=== PATIENT | female | born 1990 ===

== ENCOUNTER 2016-09-17 21:16 | Emergency (ER) | payer BC ==
[2016-09-17 21:25] VITALS: BP 159/79; PULSE 78; RESP 18; TEMP 97.9; O2SAT 100
[2016-09-17 22:31] LABS: BASO # 0.1 K/uL (0.0-0.2); BASO % 0.8 % (0.0-2.0); EOS # 0.1 K/uL (0.0-0.7); EOS % 1.7 % (0.0-4.0); HEMATOCRIT 38.4 % (34.0-47.0); LYMPH % 26.8 % (20.0-40.0); MEAN CELL VOLUME 82.7 fl (81.0-99.0); MEAN CORPUSCULAR HEMOGLOBIN 27.3 pg (27.0-31.0); MEAN PLATELET VOLUME 9.4 fl (7.2-11.7); MONO # 0.5 K/uL (0.0-0.8); MONO % 6.8 % (0.0-10.0); NEUT # 4.7 K/uL (1.8-7.0); NEUT % 63.9 % (50.0-75.0); RED CELL DISTRIBUTION WIDTH 13.3 % (11.5-14.5); WHITE BLOOD COUNT 7.4 K/uL (4.8-10.8)
[2016-09-17 22:57] LABS: ALB/GLOB RATIO 1.1 (1.0-2.1); ALKALINE PHOSPHATASE 68 U/L (38-126); ALT/SGPT 37 U/L (9-52); AST/SGOT 43 U/L (14-36); BILIRUBIN,TOTAL 0.6 mg/dl (0.2-1.3); BLOOD UREA NITROGEN 16 mg/dl (7-17); CALCIUM 9.7 mg/dL (8.4-10.2); CARBON DIOXIDE 27 mmol/L (22-30); CHLORIDE 102 mmol/L (98-107); GFR AFRICAN-AMERICAN > 60; GLUCOSE,RANDOM 85 mg/dL (65-105); LIPASE 95 U/L (23-300); POTASSIUM 4.4 MMOL/L (3.6-5.0); SODIUM 141 mmol/l (132-148); TOTAL PROTEIN 8.2 G/DL (6.3-8.2)
--- NOTE | 2016-09-17 23:07 | ED PDOC ---
HPI: Abdomen Time Seen by Provider: 09/17/16 21:27 Chief Complaint (Nursing): Abdominal Pain Chief Complaint (Provider): Abdominal Pain History Per: Patient History/Exam Limitations: no limitations Onset/Duration Of Symptoms: Days (x3), Intermittent Episodes (present only w/ urination/ambulation) Outside of [place] travel?: No Current Symptoms Are (Timing): Still Present Severity: Moderate Location Of Pain/Discomfort: LLQ Quality Of Discomfort: Unable To Describe Additional Complaint(s): Myla De La Torre is a 25 year old female, with no pertinent past medical history, who presents to the ED on 09/17/16 for the evaluation of moderate LLQ abdominal pain that she has experienced x3 days, only present with urination/ambulation. Some associated fatigue also reported in addition to non-bloody vomiting, the latter of which was experienced at symptom onset but has since resolved. Denies shortness of breath, back pain, dysuria, hematuria, diarrhea, melena or hematochezia; further reporting frequent/normal stools. No recent travel, previous abdominal surgeries or known sick contacts. Of note, patient also reports experiencing 2-3 weeks worth of cough/congestion. PMD: none provided Past Medical History Reviewed: Historical Data, Nursing Documentation, Vital Signs Vital Signs: Last Vital Signs Temp 97.9 F 09/17/16 21:22 Pulse 78 09/17/16 21:22 Resp 18 09/17/16 21:22 BP 159/79 H 09/17/16 21:22 Pulse Ox 100 09/17/16 23:10 - Medical History PMH: No Chronic Diseases - Surgical History Surgical History: No Surg Hx - Family History Family History: States: Unknown Family Hx - Social History Current smoker - smoking cessation education provided: No Alcohol: None Drugs: Denies - Home Medications Home Medications: Ambulatory Orders Medication Instructions Recorded Benzonatate [Tessalon Perle] 100 mg PO Q8 PRN #30 capsule 09/17/16 Fluticasone Propionate [Flonase] 2 spr NS DAILY PRN #1 bottle 09/17/16 - Allergies Allergies/Adverse Reactions: Allergies Allergy/AdvReac Type Severity Reaction Status Date / Time No Known Allergies Allergy Verified 09/17/16 21:22 Review of Systems ROS Statement: Except As Marked, All Systems Reviewed And Found Negative Constitutional: Positive for: Other (fatigue) ENT: Positive for: Nose Congestion Respiratory: Positive for: Cough. Negative for: Shortness of Breath Gastrointestinal: Positive for: Vomiting (non-bloody, since resolved), Abdominal Pain (LLQ, present only with urination/ambulation). Negative for: Diarrhea, Melena, Hematochezia Genitourinary Female: Negative for: Dysuria, Hematuria Musculoskeletal: Negative for: Back Pain Physical Exam - Reviewed Nursing Documentation Reviewed: Yes Vital Signs Reviewed: Yes - Physical Exam Appears: Positive for: Non-toxic, No Acute Distress Head Exam: Positive for: ATRAUMATIC, NORMOCEPHALIC Skin: Positive for: Normal Color, Warm, Dry Eye Exam: Positive for: Normal appearance, PERRL ENT: Positive for: Normal ENT Inspection, TM Is/Are (normal b/l). Negative for : Pharyngeal Erythema, Tonsillar Exudate, Tonsillar Swelling Neck: Positive for: Normal, Painless ROM, Supple Cardiovascular/Chest: Positive for: Regular Rate, Rhythm. Negative for: Murmur Respiratory: Positive for: Normal Breath Sounds. Negative for: Respiratory Distress Gastrointestinal/Abdominal: Positive for: Normal Exam, Soft. Negative for: Tenderness Back: Positive for: Normal Inspection Extremity: Positive for: Normal ROM (moving all extremities well) Neurologic/Psych: Positive for: Alert, Oriented - Laboratory Results Result Diagrams: 09/17/16 22:25 09/17/16 22:25 - ECG O2 Sat by Pulse Oximetry: 100 (RA) Pulse Ox Interpretation: Normal - Progress Re-evaluation Time: 23:47 (Denies abd pain. Abd remains soft and non-tender. ) Condition: Re-examined Medical Decision Making Medical Decision Makin:27 Initial Impression: abdominal pain, cough/congestion Initial Plan: * CXR * Labs * Lipase * Upreg * Udip * Rapid Strep * Infectious Mononucleosis Swab * Throat Culture * Reevaluation Scribe Attestation: Documented by Kay Sweeney, acting as a scribe for Emil Garcia PA-C. Provider Scribe Attestation: All medical record entries made by the Scribe were at my direction and personally dictated by me. I have reviewed the chart and agree that the record accurately reflects my personal performance of the history, physical exam, medical decision making, and the department course for this patient. I have also personally directed, reviewed, and agree with the discharge instructions and disposition. Disposition - Clinical Impression Clinical Impression: Viral syndrome - Patient ED Disposition Is Patient to be Admitted: No - Disposition Referrals: [facility] [Outside] Disposition: Routine/Home Disposition Time: 23:48 Condition: STABLE Prescriptions: Fluticasone Propionate [Flonase] 2 spr NS DAILY PRN #1 bottle PRN Reason: Allergy Symptoms Benzonatate [Tessalon Perle] 100 mg PO Q8 PRN #30 capsule PRN Reason: Cough Instructions: Viral Syndrome (ED) Forms: [facility] ED School/Work Excuse
--- NOTE | 2016-09-18 10:24 | RAD ---
HISTORY: Cough COMPARISON: No prior. TECHNIQUE: Chest PA and lateral FINDINGS: LUNGS: The lungs are well inflated and clear. PLEURA: No significant pleural effusion identified. No pneumothorax apparent. CARDIOVASCULAR: Normal. OSSEOUS STRUCTURES: No significant abnormalities. VISUALIZED UPPER ABDOMEN: Normal. OTHER FINDINGS: None. IMPRESSION: No active pulmonary disease.
== END 2016-09-18 00:22 | disposition home or self-care (01) ==
LOC: H.ER 21:16
DX: B34.9 Viral infection, unspecified (principal)

== ENCOUNTER 2017-07-15 10:45 | Emergency (ER) | payer BC ==
[2017-07-15 11:00] VITALS: O2SAT 99
--- NOTE | 2017-07-15 13:01 | RAD ---
HISTORY: cough, fever COMPARISON: Comparison chest 09/17/2016 TECHNIQUE: Chest PA and lateral FINDINGS: LUNGS: No active pulmonary disease. PLEURA: No significant pleural effusion identified. No pneumothorax apparent. CARDIOVASCULAR: Normal. OSSEOUS STRUCTURES: No significant abnormalities. VISUALIZED UPPER ABDOMEN: Normal. OTHER FINDINGS: None. IMPRESSION: No active disease.
--- NOTE | 2017-07-15 13:44 | ED PDOC ---
HPI: CCC, URI, Sore Throat Time Seen by Provider: 07/15/17 11:05 Chief Complaint (Nursing): Flu-like Symptoms Chief Complaint (Provider): [place] x 3 days, no fever, no body pain History Per: Patient History/Exam Limitations: no limitations Have you had recent travel within the past 21 days to any of the following countries: [place], [place], [place] or [place]?: No Onset/Duration Of Symptoms: Days Current Symptoms Are (Timing): Still Present Location Of Pain: None Sick Contacts (Context): None Associated Symptoms: Cough, Sputum (white ). denies: Fever, Chills, Sore Throat Ear Symptoms: Bilateral: None Past Medical History Reviewed: Historical Data, Nursing Documentation, Vital Signs Vital Signs: Last Vital Signs Temp 989.6 F H 07/15/17 10:59 Pulse 74 07/15/17 10:59 Resp 16 07/15/17 10:59 BP 99/54 L 07/15/17 10:59 Pulse Ox 99 07/15/17 10:59 - Medical History PMH: No Chronic Diseases - Surgical History Surgical History: No Surg Hx - Family History Family History: States: Unknown Family Hx - Immunization History Hx Influenza Vaccination: No - Home Medications Home Medications: Ambulatory Orders Medication Instructions Recorded Benzonatate [Tessalon Perle] 100 mg PO Q8 PRN #30 capsule 09/17/16 Fluticasone Propionate [Flonase] 2 spr NS DAILY PRN #1 bottle 09/17/16 Promethazine HCl/Codeine 10 ml PO Q8H PRN #150 ml 07/15/17 [Prometh-Codein 6.25-10 mg/5 ml] - Allergies Allergies/Adverse Reactions: Allergies Allergy/AdvReac Type Severity Reaction Status Date / Time No Known Allergies Allergy Verified 09/17/16 21:22 Review of Systems ROS Statement: Except As Marked, All Systems Reviewed And Found Negative Constitutional: Negative for: Fever, Chills Cardiovascular: Negative for: Chest Pain, Palpitations Respiratory: Positive for: Cough. Negative for: Shortness of Breath Physical Exam - Reviewed Nursing Documentation Reviewed: Yes Vital Signs Reviewed: Yes - Physical Exam Appears: Positive for: Well, Non-toxic, No Acute Distress Head Exam: Positive for: ATRAUMATIC, NORMAL INSPECTION, NORMOCEPHALIC Skin: Positive for: Normal Color, Warm, DRY Eye Exam: Positive for: Normal appearance ENT: Positive for: Normal ENT Inspection Neck: Positive for: Normal, Painless ROM Cardiovascular/Chest: Positive for: Regular Rate, Rhythm Respiratory: Positive for: Normal Breath Sounds. Negative for: Accessory Muscle Use Gastrointestinal/Abdominal: Positive for: Normal Exam, Bowel Sounds, Soft Back: Positive for: Normal Inspection Extremity: Positive for: Normal ROM Neurologic/Psych: Positive for: Alert, Oriented - ECG O2 Sat by Pulse Oximetry: 99 Medical Decision Making Medical Decision Making: CXR - Normal Disposition - Clinical Impression Clinical Impression: Cough - Patient ED Disposition Is Patient to be Admitted: No Counseled Patient/Family Regarding: Diagnosis, Need For Followup, Rx Given - Disposition Disposition: Routine/Home Disposition Time: 13:42 Condition: GOOD Prescriptions: Promethazine HCl/Codeine [Prometh-Codein 6.25-10 mg/5 ml] 10 ml PO Q8H PRN #150 ml PRN Reason: Cough Instructions: Cough in Adults
[2017-07-15 13:59] VITALS: BP 105/63; PULSE 69; RESP 19; TEMP 98.2
== END 2017-07-15 13:45 | disposition home or self-care (01) ==
LOC: H.ER 10:45
DX: R05 Cough (principal)

== ENCOUNTER 2017-07-21 11:13 | Emergency (ER) | payer BC ==
[2017-07-21 11:32] VITALS: PULSE 85; RESP 18; TEMP 97.8; O2SAT 98
[2017-07-21] MEDS ORDERED: Albuterol 0.083% Inhal Sol (2.5 mg/3 mL) UD INH STA (12:21)
[2017-07-21] MEDS ORDERED: Albuterol-Ipratrop 3 mg / 0.5 (3 ml) UD ONE (12:31)
--- NOTE | 2017-07-21 12:32 | ED PDOC ---
HPI: CCC, URI, Sore Throat Time Seen by Provider: 07/21/17 12:13 Chief Complaint (Nursing): Flu-like Symptoms Chief Complaint (Provider): Cough History Per: Patient History/Exam Limitations: no limitations Onset/Duration Of Symptoms: Days (x 1 week) Current Symptoms Are (Timing): Still Present Additional Complaint(s): 26 y/o female presents complaining of a cough for 1 week. Seen here on 07/15/17 and given promethazine, however cough is persistent despite taking medicine as instructed. At that time patient had a chest x-ray done which was unremarkable. Patient denies history of asthma, and is requesting antibiotics. Also reports body aches. No fever, chills, vomiting, or nausea. PMD: none Past Medical History Reviewed: Historical Data, Nursing Documentation, Vital Signs Vital Signs: Last Vital Signs Temp 97.8 F 07/21/17 11:29 Pulse 85 07/21/17 11:29 Resp 18 07/21/17 11:29 BP Pulse Ox 98 07/21/17 12:48 - Medical History PMH: No Chronic Diseases - Surgical History Surgical History: No Surg Hx - Family History Family History: States: Unknown Family Hx - Social History Current smoker - smoking cessation education provided: No Alcohol: None Drugs: Denies - Immunization History Hx Influenza Vaccination: No - Home Medications Home Medications: Ambulatory Orders Medication Instructions Recorded Benzonatate [Tessalon Perle] 100 mg PO Q8 PRN #30 capsule 09/17/16 Fluticasone Propionate [Flonase] 2 spr NS DAILY PRN #1 bottle 09/17/16 Promethazine HCl/Codeine 10 ml PO Q8H PRN #150 ml 07/15/17 [Prometh-Codein 6.25-10 mg/5 ml] Albuterol HFA [Ventolin HFA 90 2 puff IH E0ERYTS PRN #1 inh 07/21/17 mcg/actuation (8 g)] Promethazine/Codeine 5 ml PO Q12 PRN #100 ml 07/21/17 [Codeine/Promethazine 10 MG/5 Ml-6.25 MG/5 Ml] predniSONE [predniSONE Tab] 2 tab PO DAILY #10 tab 07/21/17 - Allergies Allergies/Adverse Reactions: Allergies Allergy/AdvReac Type Severity Reaction Status Date / Time No Known Allergies Allergy Verified 09/17/16 21:22 Review of Systems ROS Statement: Except As Marked, All Systems Reviewed And Found Negative Constitutional: Positive for: Other (Body aches). Negative for: Fever, Chills Respiratory: Positive for: Cough. Negative for: Shortness of Breath Gastrointestinal: Negative for: Nausea, Vomiting Physical Exam - Reviewed Nursing Documentation Reviewed: Yes Vital Signs Reviewed: Yes - Physical Exam Appears: Positive for: Non-toxic, No Acute Distress Head Exam: Positive for: ATRAUMATIC, NORMAL INSPECTION, NORMOCEPHALIC Skin: Positive for: Normal Color, Warm, Dry Eye Exam: Positive for: EOMI, Normal appearance, PERRL ENT: Positive for: Normal ENT Inspection. Negative for: Pharyngeal Erythema, Tonsillar Exudate Neck: Positive for: Normal, Painless ROM Cardiovascular/Chest: Positive for: Regular Rate, Rhythm. Negative for: Murmur Respiratory: Positive for: Normal Breath Sounds. Negative for: Rales, Rhonchi, Wheezing, Respiratory Distress Neurologic/Psych: Positive for: Alert, Oriented - ECG O2 Sat by Pulse Oximetry: 98 (RA) Pulse Ox Interpretation: Normal - Progress ED Course And Treament: Reviewed records from prior visit on 07/15/17: CHEST X-RAY: FINDINGS: LUNGS: No active pulmonary disease. PLEURA: No significant pleural effusion identified. No pneumothorax apparent. CARDIOVASCULAR: Normal. OSSEOUS STRUCTURES: No significant abnormalities. VISUALIZED UPPER ABDOMEN: Normal. OTHER FINDINGS: None. IMPRESSION: No active disease. INFLUENZA A/B NEG ALBUTEROL NEB X 1 DOSE Medical Decision Making Medical Decision Making: Time: 12:21 Initial Plan: * Influenza A B * Albuterol 2.5 mg INH * Peak Flow pre/post treatment Scribe Attestation: Documented by Kandis Messina, acting as a scribe for Virgilio Costello PA-C Provider Scribe Attestation: All medical record entries made by the Scribe were at my direction and personally dictated by me. I have reviewed the chart and agree that the record accurately reflects my personal performance of the history, physical exam, medical decision making, and the department course for this patient. I have also personally directed, reviewed, and agree with the discharge instructions and disposition. Disposition - Clinical Impression Clinical Impression: Cough - Patient ED Disposition Is Patient to be Admitted: No - Disposition Referrals: David Srinivasan MD [Staff Provider] - Disposition: Routine/Home Disposition Time: 13:30 Condition: FAIR Prescriptions: Albuterol HFA [Ventolin HFA 90 mcg/actuation (8 g)] 2 puff IH [id number] PRN #1 inh PRN Reason: Cough predniSONE [predniSONE Tab] 2 tab PO DAILY #10 tab Promethazine/Codeine [Codeine/Promethazine 10 MG/5 Ml-6.25 MG/5 Ml] 5 ml PO Q12 PRN #100 ml PRN Reason: Cough Instructions: Cough in Adults Forms: [facility] ([place]), [facility] ED School/Work Excuse
[2017-07-21 13:43] VITALS: BP 105/68
== END 2017-07-21 13:59 | disposition home or self-care (01) ==
LOC: H.ER 11:13
DX: R05 Cough (principal)